=== PATIENT | male | born 1940 | race Caucasian/White ===

== ENCOUNTER → 2025-05-21 11:19 | Outpatient (REF) | payer OTHER, SELFPAY ==
[2025-05-21 16:28] LABS: PSA, Total - Diagnostic 5.17 ng/ml (0.0-4.0)
== END ==
LOC: HWRAD 11:19
PROVIDERS: ATTENDING PHYSICIAN Urology; FAMILY PHYSICIAN Family Medicine
DX: R19.00 Intra-abdominal and pelvic swelling, mass and lump, unspecified site (principal); N20.2 Calculus of kidney with calculus of ureter; N40.1 Benign prostatic hyperplasia with lower urinary tract symptoms; N13.8 Other obstructive and reflux uropathy
CPT/HCPCS: 36415; 74176; 76705; 84153